=== PATIENT | female | born 1995 | race African-American/Black ===

== ENCOUNTER 2022-12-10 15:30 | Observation (INO) | payer MEDICAID, OTHER ==
[2022-12-10] MEDS ORDERED: PREN-96 PO (16:57)
[2022-12-10] MEDS ORDERED: NITR-52 PO (17:36)
== END 2022-12-10 17:50 | disposition home or self-care (01) ==
LOC: LDRP 15:30
PROVIDERS: ADMIT Obstetrics & Gynecology; ATTEND Obstetrics & Gynecology
DX: O26.852 Spotting complicating pregnancy, second trimester (principal); Z3A.20 20 weeks gestation of pregnancy
CPT/HCPCS: 59025; 76815; 81002; 94760; G0378